=== PATIENT | female | born 1960 | race Two or more races ===

== ENCOUNTER → 2020-05-02 | Outpatient (CLI) | payer BC ==
--- NOTE | 2020-05-02 13:44 | KCIC ---
EXAM: Right hand, 3 views. HISTORY: Pain. COMPARISON: None. FINDINGS: 3 views of the right hand are obtained. There is no fracture, dislocation or subluxation. There is no foreign body. IMPRESSION: No acute osseous finding. Electronically signed by: Richelle Grimaldo MD (05/02/2020 1:41 PM) [facility]
== END | disposition home or self-care (01) ==
LOC: KCIC 11:05
PROVIDERS: ATTEND Nurse Practitioner
DX: M25.541 Pain in joints of right hand (principal)
CPT/HCPCS: 73130